=== PATIENT | male | born 1985 | race Caucasian/White ===

== ENCOUNTER 2018-12-08 15:49 | Inpatient (IN) | payer OTHER ==
[2018-12-08 18:59] LABS: ABS Basophils 0.1 10^3/ul (0-0.2); ABS Eosinophils 0.1 10^3/ul (0-0.6); ABS Lymphocytes 1.7 10^3/ul (1.0-4.8); ABS Monocytes 0.8 10^3/ul (0-0.8); ABS Neutrophils 5.6 10^3/ul (1.5-7.7); Eosinophil % 0.7 %; Hematocrit 37 % (42-52); Hemoglobin 12.3 g/dL (14.0-18.0); Lymphocyte % 20.2 %; Mean Corpuscular HGB Conc 33 g/dL (31-36); Mean Corpuscular Hemoglobin 28 pg (27-31); Mean Corpuscular Volume 84 fL (80-94); Mean Platelet Volume 6.5 fL (7.4-10.4); Platelet Count 407 10^3/uL (150-450); Red Blood Count 4.44 10^6 /uL (4.18-5.48); Red Cell Distribution Width 13 % (10-15); White Blood Count 8.2 10^3/uL (3.5-10.8)
[2018-12-08 19:16] LABS: Albumin 3.5 g/dL (3.2-5.2); Calcium 8.8 mg/dL (8.6-10.3); Potassium 3.9 mmol/L (3.5-5.0); Total Bilirubin 0.3 mg/dL (0.2-1.0)
[2018-12-08 19:21] LABS: Troponin I 0.01 ng/mL (<0.04)
[2018-12-08 19:22] LABS: Albumin/Globulin Ratio 1.1 (1-3); BUN/Creatinine Ratio 17.8 (8-20); EGFR African American 148.8 (>60); Globulin 3.2 g/dL (2-4); Total Protein 6.7 g/dL (6.4-8.9)
[2018-12-08 19:29] LABS: C Reactive Protein 47.61 mg/L (<8.01)
--- NOTE | 2018-12-08 19:29 | ED ---
Palpitations / Dysrhythmia - HPI Summary HPI Summary: A 33 y/o male was sent from the [facility] in [place] to [facility] with a chief complaint of having an abnormal EKG. The patient had a IN interval of 104, potassium of 5.7 and low vitamin D. He says that before this he had some flu like symptoms, and now he has some muscle aching and joint aches, but claims that they have been getting better. He says that one week ago he had elbow pain , before then his feet and left hand had pain, and now his knee has pain. Pt denies any fever, chills, erythema of eyes, sore throat, CP, SOB, cough, abdominal pain, N/V, dysuria, hematuria, myalgia, edema, rash, or dizziness. At triage he rated his pain as a 0/10 in severity. He denies any tick exposure. He denies any PMHx, any SHx or taking any medications. - History of Current Complaint Chief Complaint: EDDysrhythmPalp Time Seen by Provider: 12/08/18 18:41 Hx Obtained From: Patient Onset/Duration: Sudden Onset, Lasting Hours, Still Present Timing: Constant Severity Initially: Mild Severity Currently: Mild Aggravating: Nothing Alleviating: Nothing Associated Signs & Symptoms: Negative - Allergy/Home Medications Allergies/Adverse Reactions: Allergies Allergy/AdvReac Type Severity Reaction Status Date / Time No Known Allergies Allergy Verified 12/08/18 15:59 PMH/Surg Hx/FS Hx/Imm Hx Endocrine/Hematology History: Denies: Hx Diabetes Cardiovascular History: Denies: Hx Hypercholesterolemia, Hx Hypertension Sensory History: Denies: Hx Deafness Opthamlomology History: Reports: Hx Contacts or Glasses EENT History: Denies: Hx Deafness - Surgical History Surgical History: None Infectious Disease History: No Infectious Disease History: Denies: Traveled Outside the [place] in Last 30 Days - Family History Known Family History: Positive: Cardiac Disease - [place] grandfather Negative: Hypertension, Diabetes - Social History Alcohol Use: Occasionally Substance Use Type: Reports: Marijuana Smoking Status (MU): Never Smoked Tobacco Review of Systems Negative: Fever, Chills Negative: Erythema Negative: Sore Throat Positive: Other - positive: "abnormal EKG". Negative: Chest Pain Negative: Shortness Of Breath, Cough Negative: Abdominal Pain, Vomiting, Nausea Negative: dysuria, hematuria Positive: Arthralgia, Other - positive: muscle aches and soreness. Negative: Myalgia, Edema Negative: Rash Neurological: Negative - dizziness All Other Systems Reviewed And Are Negative: Yes Physical Exam - Summary Physical Exam Summary: Constitutional: Well-developed, Well-nourished, Alert. (-) Distressed Skin: Warm, Dry HENT: Normocephalic; Atraumatic Eyes: Conjunctiva normal Neck: Musculoskeletal ROM normal neck. (-) JVD, (-) Stridor, (-) Tracheal deviation Cardio: Rhythm regular, rate normal, Heart sounds normal; Intact distal pulses; The pedal pulses are 2+ and symmetric. Radial pulses are 2+ and symmetric. (-) Murmur Pulmonary/Chest wall: Effort normal. (-) Respiratory distress, (-) Wheezes, (-) Rales Abd: Soft, (-) tenderness, (-) Distension, (-) Guarding, (-) Rebound Musculoskeletal: (-) Edema Lymph: (-) Cervical adenopathy Neuro: Alert, Oriented x3 Psych: Mood and affect Normal Triage Information Reviewed: Yes Vital Signs On Initial Exam: Initial Vitals Temp Pulse Resp BP Pulse Ox 97.9 F 89 16 145/89 99 12/08/18 15:54 12/08/18 15:54 12/08/18 15:54 12/08/18 15:54 12/08/18 15:54 Vital Signs Reviewed: Yes Diagnostics - Vital Signs Vital Signs Temp Pulse Resp BP Pulse Ox 12/08/18 18:00 86 99 12/08/18 17:56 85 131/80 100 12/08/18 17:46 76 24 99 12/08/18 15:54 97.9 F 89 16 145/89 99 - Laboratory Lab Results: Lab Results 12/08/18 12/08/18 12/08/18 Range/Units 18:46 18:46 18:46 WBC 8.2 (3.5-10.8) 10^3/uL RBC 4.44 (4.18-5.48) 10^6 /uL Hgb 12.3 L (14.0-18.0) g/dL Hct 37 L (42-52) % MCV 84 (80-94) fL MCH 28 (27-31) pg MCHC 33 (31-36) g/dL RDW 13 (10-15) % Plt Count 407 (150-450) 10^3/uL MPV 6.5 L (7.4-10.4) fL Neut % (Auto) 68.5 % Lymph % (Auto) 20.2 % [place] % (Auto) 9.8 % Eos % (Auto) 0.7 % Baso % (Auto) 0.8 % Absolute Neuts (auto) 5.6 (1.5-7.7) 10^3/ul Absolute Lymphs (auto) 1.7 (1.0-4.8) 10^3/ul Absolute Monos (auto) 0.8 (0-0.8) 10^3/ul Absolute Eos (auto) 0.1 (0-0.6) 10^3/ul Absolute Basos (auto) 0.1 (0-0.2) 10^3/ul Absolute Nucleated RBC 0.0 10^3/ul Nucleated RBC % 0.0 Sodium 136 (135-145) mmol/L Potassium 3.9 (3.5-5.0) mmol/L Chloride 104 (101-111) mmol/L Carbon Dioxide 24 (22-32) mmol/L Anion Gap 8 (2-11) mmol/L BUN 13 (6-24) mg/dL Creatinine 0.73 (0.67-1.17) mg/dL Est GFR ( Amer) 148.8 (>60) Est GFR (Non-Af Amer) 123.0 (>60) BUN/Creatinine Ratio 17.8 (8-20) Glucose 104 H (70-100) mg/dL Lactic Acid 1.0 (0.5-2.0) mmol/L Calcium 8.8 (8.6-10.3) mg/dL Total Bilirubin 0.30 (0.2-1.0) mg/dL AST 14 (13-39) U/L ALT 15 (7-52) U/L Alkaline Phosphatase 83 (34-104) U/L Troponin I 0.01 (<0.04) ng/mL C-Reactive Protein Pending Total Protein 6.7 (6.4-8.9) g/dL Albumin 3.5 (3.2-5.2) g/dL Globulin 3.2 (2-4) g/dL Albumin/Globulin Ratio 1.1 (1-3) Result Diagrams: 12/08/18 18:46 12/08/19 18:46 Lab Statement: Any lab studies that have been ordered have been reviewed, and results considered in the medical decision making process. - EKG 16:04 Cardiac Rate: Other Rate - Accelerated junctional rhythm at 83 bpm Summary of EKG Findings: EKG at 16:04 showed Accelerated junctional rhythm at 83 bpm, no STEMI. 18:45 Cardiac Rate: Other Rate - Sinus or ectopic atrial rhythm at 77bpm. Summary of EKG Findings: EKG at 18:45 showed Sinus or ectopic atrial rhythm at 77bpm, prolonged IN interval, left bundle branch block, no STEMI. Re-Evaluation - Re-Evaluation First Eval Re-Evaluation Time: 19:54 Change: Unchanged Comment: Updated patient on the plan. Course/Dx - Course Course Of Treatment: A 33 y/o male was sent from the [facility] in [place] to [facility] with a chief complaint of having an abnormal EKG. The patient had a IN interval of 104, potassium of 5.7 and low vitamin D. He says that before this he had some flu like symptoms, and now he has some muscle aching and joint aches , but claims that they have been getting better. He says that one week ago he had elbow pain, before then his feet and left hand had pain, and now his knee has pain. Pt denies any fever, chills, erythema of eyes, sore throat, CP, SOB, cough, abdominal pain, N/V, dysuria, hematuria, myalgia, edema, rash, or dizziness. At triage he rated his pain as a 0/10 in severity. He denies any tick exposure. He denies any PMHx, any SHx or taking any medications. The physical exam was unremarkable. EKG at 16:04 showed Accelerated junctional rhythm at 83 bpm, no STEMI. EKG at 18:45 showed Sinus or ectopic atrial rhythm at 77bpm, prolonged IN interval, left bundle branch block, no STEMI. Blood work and chemistries obtained. Potassium of 3.9. In the ED course the patient was given Ceftriaxone sodium IVPB. Discussed case with Dr. Romero, choir director. 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 Discussed case with Dr. Beyer, who accepted the patient for admission. The patient is agreeable with this plan. 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 Discharge - Sign-Out/Discharge Documenting (check all that apply): Patient Departure - admit All imaging exams completed and their final reports reviewed: Yes Patient Received Moderate/Deep Sedation with Procedure: No - Discharge Plan Condition: Good Disposition: ADMITTED TO [facility] - Billing Disposition and Condition Condition: GOOD [facility]position: [facility] - Attestation Statements Document Initiated by Scribe: Yes Documenting Scribe: Lico Navarrete Provider For Whom Scribe is Documenting (Include Credential): Blanco Salmon MD Scribe Attestation: Lico Santamaria, scribed for Blanco Salmon MD on 12/16/18 at 1135. Scribe Documentation Reviewed: Yes Provider Attestation: The documentation as recorded by the Lico scanlon accurately reflects the service I personally performed and the decisions made by me, Blanco Salmon MD Status of Scribe Document: Viewed Consult Consult: Discussed case with Dr. Beyer, hospitalist, who accepted the patient for admission.
[2018-12-08] MEDS ORDERED: cefTRIAXone(*) 2 GM in NS 0.9% 100 ML* 100 ML IVPB ONE (19:47)
--- NOTE | 2018-12-08 20:13 | HP ---
History of Present Illness - History of Present Illness Reason for Visit: Joint Pain and abnormal EKG History of Present Illness: 33yoM with no past medical history here due to abnormal EKG. Patient was in his usual state of health up until last month when he started noticing muscle aches on the shoulder, which didn't improve. Later started having diffuse pain in joints and muscles which was migrating arthritis and muscle aches. Has been having generalized fatigue felt like he had the flu. Had night sweats felt like he was breaking a fever but never checked his temperature. No chest pain or breathing difficulty or palpitations. Denies any tick bites. Had one episode of severe light headedness 2-3 weeks ago. He finally went to see a doctor at the [facility] who noticed abnormal EKG and sent to ER for evaluation. [place]. -Past Medical History None - Past Surgical History Past Surgical History: Other - Root canal but no other surgeries. - Past Family History Family History: None - Mother and Father in their 60s without any cardiac problem. Father had diabetes that improved with just diet. - Past Social History Smoke: No - But has tried cigar occationally. Occupation: but works as weilder now. Alcohol: Occassional - Once a month. Drugs: Marijuana - Tried smoking occassionally. Lives: With Family - and daughter Review of Systems - Measurements Intake and Output: Intake and Output Last 24 Hours 12/06/18 12/07/18 12/08/18 12/09/18 06:59 06:59 06:59 06:59 Weight 196 lb - Review of Systems Constitutional Symptoms: Positive: Weakness, Fatigue, Night Sweats Dermatology: Negative: Rash, Skin Lesions Pulmonary: Negative: Cough, Respiratory Distress Cardiology: Negative: Chest Pain, Shortness of Breath, Palpitations, Edema Gastroenterology: Negative: Abdominal Pain, Nausea, Vomiting Musculoskeletal: Positive: Joint Pain, Joint Stiffness Neurology: Positive: Dizziness Objective Active Medications: Ceftriaxone Sodium 2 gm/ (Sodium Chloride) 100 mls @ 200 mls/hr IVPB ED ONCE ONE Stop: 12/08/18 20:16 Vital Signs - 8 hr 12/08/18 12/08/18 12/08/18 15:54 17:46 17:56 Temperature 97.9 F Pulse Rate 89 76 85 Respiratory 16 24 Rate Blood Pressure 145/89 131/80 (mmHg) O2 Sat by Pulse 99 99 100 Oximetry 12/08/18 18:00 Temperature Pulse Rate 86 Respiratory Rate Blood Pressure (mmHg) O2 Sat by Pulse 99 Oximetry Oxygen Devices in Use Now: None Eyes: No Scleral Icterus, PERRLA Ears/Nose/Mouth/Throat: NL Teeth, Lips, Gums, Clear Oropharnyx, Mucous Membranes Moist Neck: NL Appearance and Movements; NL JVP, Trachea Midline, No Thyroid Enlargement, Masses Respiratory: Clear to Auscultation Cardiovascular: NL Sounds; No Murmurs; No JVD, RRR, No Edema Abdominal: NL Sounds; No Tenderness; No Distention, No Hepatosplenomegaly Extremities: No Edema Skin: No Rash or Ulcers Neurological: Alert and Oriented x 3, NL Sensation, NL Gait, NL Muscle Strength and Tone Nutrition: Taking PO's Result Diagrams: 12/08/18 18:46 12/08/18 18:46 Additional Lab and Data: Lab Results 12/08/18 12/08/18 12/08/18 Range/Units 18:46 18:46 18:46 WBC 8.2 (3.5-10.8) 10^3/uL RBC 4.44 (4.18-5.48) 10^6 /uL Hgb 12.3 L (14.0-18.0) g/dL Hct 37 L (42-52) % MCV 84 (80-94) fL MCH 28 (27-31) pg MCHC 33 (31-36) g/dL RDW 13 (10-15) % Plt Count 407 (150-450) 10^3/uL MPV 6.5 L (7.4-10.4) fL Neut % (Auto) 68.5 % Lymph % (Auto) 20.2 % [place] % (Auto) 9.8 % Eos % (Auto) 0.7 % Baso % (Auto) 0.8 % Absolute Neuts (auto) 5.6 (1.5-7.7) 10^3/ul Absolute Lymphs (auto) 1.7 (1.0-4.8) 10^3/ul Absolute Monos (auto) 0.8 (0-0.8) 10^3/ul Absolute Eos (auto) 0.1 (0-0.6) 10^3/ul Absolute Basos (auto) 0.1 (0-0.2) 10^3/ul Absolute Nucleated RBC 0.0 10^3/ul Nucleated RBC % 0.0 Sodium 136 (135-145) mmol/L Potassium 3.9 (3.5-5.0) mmol/L Chloride 104 (101-111) mmol/L Carbon Dioxide 24 (22-32) mmol/L Anion Gap 8 (2-11) mmol/L BUN 13 (6-24) mg/dL Creatinine 0.73 (0.67-1.17) mg/dL Est GFR ( Amer) 148.8 (>60) Est GFR (Non-Af Amer) 123.0 (>60) BUN/Creatinine Ratio 17.8 (8-20) Glucose 104 H (70-100) mg/dL Lactic Acid 1.0 (0.5-2.0) mmol/L Calcium 8.8 (8.6-10.3) mg/dL Total Bilirubin 0.30 (0.2-1.0) mg/dL AST 14 (13-39) U/L ALT 15 (7-52) U/L Alkaline Phosphatase 83 (34-104) U/L Troponin I 0.01 (<0.04) ng/mL C-Reactive Protein Pending Total Protein 6.7 (6.4-8.9) g/dL Albumin 3.5 (3.2-5.2) g/dL Globulin 3.2 (2-4) g/dL Albumin/Globulin Ratio 1.1 (1-3) EKG Data: Two EKGs noted. First one at 16:04 today showed accelerated junctional at a rate of 83 with LBBB. Second one at 18:45 shows first degree AV block at a rate of 77bpm, with prolong VT of 384 and LBBB. Assess/Plan/Problems-Billing Assessment: 33year old male otherwise healthy here due to chronic fatigue and flu like symptoms noted to have abnormal EKG with variable AV bravo block initially having accelerated junctional later having first degree AV block. Presentation consistent with lyme carditis. - Patient Problems (1) Lyme carditis Current Visit: Yes Status: Acute Code(s): A69.29 - OTHER CONDITIONS ASSOCIATED WITH LYME DISEASE; I51.89 - OTHER ILL-DEFINED HEART DISEASES SNOMED Code(s): 20802335 Comment: Abnormal EKG with variable AV bravo block likely lyme. Lyme titer pending. Will also add tick panel. Uptodate suggestion admission with VT>300 and patient had 387 so will admit to inpatient with cardiac monitoring. Continue ceftriaxone 2gm daily started in ER. ECHO in AM. Spoke with Dr. Romero who will see the patinet in AM. (2) DVT prophylaxis Current Visit: Yes Status: Acute Code(s): Z29.9 - ENCOUNTER FOR PROPHYLACTIC MEASURES, UNSPECIFIED SNOMED Code(s): 643416768 Comment: Encourage ambulation. Allergies/Medications Medication: NK [No Home Medications Reported] 12/08/18 [History Confirmed 12/08/18] Allergies/Adverse Reactions: Allergies Allergy/AdvReac Type Severity Reaction Status Date / Time No Known Allergies Allergy Verified 12/08/18 15:59
[2018-12-09 09:10] LABS: CKMB ng/mL 0.5 ng/mL (0.6-6.3)
--- NOTE | 2018-12-09 09:24 | ECHO ---
*[facility]* [place] [address] Fax #: [phone] Transthoracic Echocardiogram Patient: Jaime Beavers : 1985 Study Date: 12/09/2018 Age: 33 Gender: M HR: 79 bpm Height: 72 in /182.9 cm BSA: 2.11 m^2 Weight: 195.6 lb /88.9 kg BMI: 26.6 kg/m^2 *Supervisor Plate Pasting: * Dagmar Ortega [facility] *Referring Physician: * José Beyer *Reading Physician: * Zunilda Espinoza MD Indications: Abnormal EKG. History: No known cardiac history. Conclusions Summary: 1. Left ventricle: The cavity size is normal. Wall thickness is normal. Systolic function is at the lower limits of normal. The estimated ejection fraction is 50-55%. Paradoxical septal wall motion secondary to conduction abnormality. 2. Right ventricle: The tricuspid jet envelope definition is inadequate for estimation of RV systolic pressure. There are no indirect findings (abnormal RV volume or geometry, altered pulmonary flow velocity profile, or leftward septal displacement) which would suggest moderate or severe pulmonary hypertension. 3. Mitral valve: There is trace regurgitation. 4. Pericardium, extracardiac: There is no significant pericardial effusion. 5. No previous echocardiogram available. Study data: Transthoracic echocardiogram. Procedure: Transthoracic echocardiography was performed. Image quality was good. Complete 2D, spectral Doppler, and color flow Doppler. Location: Bedside. Patient status: Inpatient. Patient room number: 446-2. Rhythm: Heart block. Findings Left ventricle: The cavity size is normal. Wall thickness is normal. Systolic function is at the lower limits of normal. The estimated ejection fraction is 50-55%. Wall motion is normal; there are no regional wall motion abnormalities. There is no consistent Doppler evidence of clinically significant diastolic dysfunction. Right ventricle: The cavity size is normal. Systolic function is low normal. The tricuspid jet envelope definition is inadequate for estimation of RV systolic pressure. There are no indirect findings (abnormal RV volume or geometry, altered pulmonary flow velocity profile, or leftward septal displacement) which would suggest moderate or severe pulmonary hypertension. Left atrium: The atrium is normal in size. Right atrium: The atrium is normal in size. Mitral valve: The leaflets are mildly thickened. There is no evidence of stenosis. There is trace regurgitation. Aortic valve: The valve is trileaflet. The leaflets are normal thickness. There is no evidence of stenosis. There is no significant regurgitation. Tricuspid valve: The leaflets are normal thickness. There is no evidence of stenosis. There is physiologic regurgitation. Pulmonic valve: The leaflets are normal thickness. There is no evidence of stenosis. There is trivial regurgitation. Aorta: Aortic root: The aortic root is appears normal. Ascending aorta: The ascending aorta is appears normal. Aortic arch: The aortic arch is appears normal. Pericardium: There is no significant pericardial effusion. Pulmonary arteries: The main pulmonary artery is normal-sized. Systolic pressure can not be accurately estimated. Systemic veins: Inferior vena cava: The vessel is normal in size. The respirophasic diameter changes are in the normal range (>= 50%). Measurements Left ventricle Value Ref Right atrium continued Value Ref JACLYN, LAX 5.4 cm 4.2 - 5.8 SI dim/bsa, ES, 2.1 cm/m^2 1.8 - ESD, LAX 3.9 cm 2.5 - 4.0 A4C 3.0 FS, LAX 29 % Estimated RAP 3 mm Hg -------- PW, ED, LAX 0.9 cm 0.6 - 1.0 FS 29 % Aortic valve Value Ref PW, ED 0.9 cm 0.6 - 1.0 Tierra diam, ED 2.3 cm -------- E', lat tierra, TDI 22.8 cm/sec >=10.0 Peak v, S 1.19 m/sec - ------- E/e', lat tierra, 3 VTI, S 20.2 cm ---- ---- TDI Mean grad, S 3.0 mm Hg -------- E', med tierra, TDI 15.5 cm/sec >=7.0 Peak grad, S 6.0 mm Hg - ------- E/e', med tierra, 4 LVOT/AV, VTI ratio 0.69 ---- ---- TDI E', avg, TDI 19.2 cm/sec Mitral valve Value Ref E/e', avg, TDI 4 <=14 Peak E 0.67 m/sec - ------- Peak A 0.44 m/sec -------- LVOT Value Ref Decel time 123 ms -------- Peak deandra, S 0.81 m/sec Peak E/A ratio 1.5 -------- VTI, S 14.0 cm Mean grad, S 1 mm Hg Pulmonic valve Value Ref Peak v, S 0.89 m/sec -------- Ventricular septum Value Ref Peak grad, S 3.0 mm Hg -------- IVS, ED 0.9 cm 0.6 - 1.0 Aortic root Value Ref Right ventricle Value Ref Root diam 3.3 cm <3.8 JACLYN, LAX 3.5 cm JACLYN minor ax, (H) 3.6 cm 1.9 - 3.5 Ascending aorta Value Ref A4C mid AAo AP diam, S 2.9 cm -------- Left atrium Value Ref Aortic arch Value Ref AP dim, ES 3.50 cm 3.00 - Arch diam 1.7 cm -------- 4.00 ML dim, A4C 3.7 cm Decending aorta Value Ref SI dim, A4C 4.8 cm Bridget peak deandra 1.03 m/sec -------- Vol/bsa, ES, 1-p 17 ml/m^2 12 - 37 A4C Inferior vena cava Value Ref Vol/bsa, ES, A/L 25 ml/m^2 16 - 34 Diam 1.8 cm -------- Right atrium Value Ref SI dim, ES 4.5 cm 3.4 - 5.3 ML dim, ES, A4C 4.3 cm 2.6 - 4.4 SI dim, ES, A4C 4.5 cm 3.4 - 5.3 Legend: (L) and (H) mike values outside specified reference range. Prepared and electronically signed by Zunilda Espinoza MD 12/09/2018 09:23
[2018-12-09 11:22] LABS: Rheumatoid Factor < 10 IU/mL (<15)
[2018-12-09 11:38] LABS: TSH (Thyroid Stimulating Horm) 0.23 mcIU/mL (0.34-5.60)
--- NOTE | 2018-12-09 13:55 | CONS ---
CONSULTATION REPORT: DATE OF CONSULT: 12/09/18 PRIMARY PHYSICIAN: The patient states he follows at the [facility] in [place]. ATTENDING PHYSICIAN: Dr. Espinoza, Cardiology.* (DICTATED BY ANNMARIE BRICENO NP ) CHIEF COMPLAINT: One month history of profound fatigue, positional lightheadedness, episodes of near syncope, and joint pain/discomfort. HISTORY OF PRESENT ILLNESS: This is a pleasant 33-year-old gentleman with no notable medical history, on no outpatient medications, who states he has been in his usual state of health up until about 4 to 5 weeks ago when he started to notice excessive fatigue, positional lightheadedness, large joint discomfort and stiffness and muscle aches and pains with night sweats intermittently. The patient states that he recently purchased a farm in [place] and he is outside routinely and of course there is a possible Lyme exposure due to persistently being outside working on his home, where he owns 8 acres. He also adds that a month ago he did have a bite on his right ankle, but denies a bull's eye rash. Since that time, he has had excessive fatigue that has not improved. He does note that on 11/25/18, he woke up at 5 o'clock in the morning to change his 6- month-old child. While standing, he had an episode of near syncope. He states that he knew he was going to "go down." So, he woke up his , lied in the supine position on the floor. He states that he was profoundly diaphoretic and pale. The episode did eventually pass. He denies syncope. He does report intermittent positional lightheadedness and night sweats. Apparently he established care with a new primary physician at the [facility], who ordered basic testing including Lyme testing yesterday and told that the potassium was 5.7, although in the emergency department his potassium was 3.9. He had an abnormal ECG, thus was instructed to present to [facility]. While being evaluated in the emergency department, the patient had accelerated junctional rhythm. ECG at that time per report, accelerated junctional rhythm, absent P-waves, accelerated ventricular rate with left bundle-branch block. The patient was admitted to [address] [place] [address] and we have been asked to see the patient in consultation. Lyme testing is pending at this time. Troponin has been normal x3. C-reactive protein was elevated at 47.6. On telemetry, around 7 o' clock this morning, he had episodes of frequent ventricular ectopy with second- degree type I heart block. No evidence of high-degree AV block. He is not symptomatic. He denies palpitations, sensation of heart racing, chest pain, shortness of breath, or edema/orthopnea. PAST MEDICAL HISTORY: None. PAST SURGICAL HISTORY: Root canal. MEDICATIONS: Home medications, none. ALLERGIES: No known drug allergies. FAMILY HISTORY: His mom had a history of back surgery and orthopedic surgeries. His father is a type 2 diabetic, controlled via diet. No significant history of sudden cardiac or cardiovascular disease in first- degree relatives. SOCIAL HISTORY: The patient is , lives at home with his and 6-month - old child. He is employed as a welder apprentice arc. He is a . He denies tobacco use. He drinks alcohol socially. He utilizes marijuana 1 to 2 times a week. Denies illegal drug use including any other illegal drug use such as cocaine, methamphetamine, or synthetic drugs. REVIEW OF SYSTEMS: All systems have been reviewed and otherwise negative except as above mentioned in the HPI. PHYSICAL EXAM: Temperature 98.4, pulse 79, respirations 16, oxygenation 97 on room air, blood pressure 120/67. General: The patient is lying in bed upon entering the room with echocardiogram recently completed. He offers no complaints, appears in no apparent distress. HEENT: Head is atraumatic, normocephalic. Oral mucosa is moist. Tongue is midline. Neck: Supple. Trachea midline. No JVD. No carotid bruits. Cardiac: Normal S1, S2. Regular rate and rhythm. No murmur, gallop, or rub noted. Lungs: Auscultated posteriorly. No evidence of adventitious breath sounds. Respirations are nonlabored. /GI: Abdomen is soft, nontender, nondistended. Normoactive bowel sounds x4. No hepatomegaly. Extremities: No pedal edema, no clubbing, no cyanosis. No apparent rashes noted or lesions. DIAGNOSTIC STUDIES/LAB DATA: Blood work obtained on 12/08/18: Sodium 136, potassium 3.9, chloride 104, carbon dioxide 24, BUN 13, creatinine 0.73, glucose 104, C-reactive protein 47.6. Troponin negative x3. ESR is pending. Lyme testing is pending. ECG from 12/08/18: Sinus rhythm, rate [address] upsloping noted in lead I to V4 through V6. The patient has intraventricular conduction delay with poor R-wave progression. Echocardiogram on 12/08/18 per report: LVEF 50% to 55%. There is paradoxical septal wall motion abnormalities secondary to conduction abnormality. Trace mitral regurgitation. No significant pericardial effusion. Aortic root is normal, no aortic stenosis or insufficiency. ASSESSMENT AND PLAN: 1. Intermittent left bundle-branch block with second-degree type I heart block and accelerated junctional rhythm; etiology is not clear at this time. LVEF low normal at 50% to 55%. Troponins negative x3. Denies chest pain. The patient did have an episode of near syncope at 5 o'clock in the morning while standing, changing his daughter on 11/25/18. The patient reports paler and profound diaphoresis episode, resolved once he lied down in the supine position on the floor. We will await Lyme testing. The patient would likely benefit from a 30- day ambulatory library monitor upon discharge. We will continue to monitor on telemetry. There is no evidence of high-degree AV block at this current time. We will follow closely. 2. One month history of profound fatigue, large joint pain, muscle aches, night sweats, and positional lightheadedness with 1 isolated episode of near syncope. Lyme testing is pending. We will update TFTs, RF factor, SADIA, ESR, and follow. Consider rheumatologic evaluation if Lyme testing is negative. The patient is on IV ceftriaxone therapy. 3. Disposition: Pending course. Dr. Espinoza has personally seen and examined the patient and agrees with the above assessment and plan. Thank you for this consultation. We will follow the patient closely and update recommendations accordingly. ANNMARIE BRICENO NP [id number]/[facility] #: [id number] 2:03 pm: pt seen and examined. Pt's clinical condition and plan of care discussed with DENICE Briceno and agree with the plan. LINUS
--- NOTE | 2018-12-09 18:15 | PN ---
Subjective Date of Service: 12/09/18 Interval History: Left knee pain resolved after initiation of CTX no SOB, CP, palps Walking around unit Objective Active Medications: Ceftriaxone Sodium 2 gm/ (Sodium Chloride) 100 mls @ 200 mls/hr IVPB Q24H [facility] Vital Signs - 8 hr 12/09/18 12/09/18 12:00 16:00 Temperature 97.6 F 97.7 F Pulse Rate 96 78 Respiratory 16 20 Rate Blood Pressure 117/64 117/69 (mmHg) O2 Sat by Pulse 98 97 Oximetry Oxygen Devices in Use Now: None Appearance: NAD Eyes: No Scleral Icterus, PERRLA Ears/Nose/Mouth/Throat: NL Teeth, Lips, Gums, Clear Oropharnyx Neck: NL Appearance and Movements; NL JVP, Trachea Midline Respiratory: Symmetrical Chest Expansion and Respiratory Effort, Clear to Auscultation Cardiovascular: NL Sounds; No Murmurs; No JVD, RRR Abdominal: NL Sounds; No Tenderness; No Distention Lymphatic: No Cervical Adenopathy Skin: No Rash or Ulcers Neurological: Alert and Oriented x 3 Result Diagrams: 12/08/18 18:46 12/08/18 18:46 Additional Lab and Data: Lab Results 12/08/18 12/08/18 12/08/18 Range/Units 18:46 18:46 18:46 WBC 8.2 (3.5-10.8) 10^3/uL RBC 4.44 (4.18-5.48) 10^6 /uL Hgb 12.3 L (14.0-18.0) g/dL Hct 37 L (42-52) % MCV 84 (80-94) fL MCH 28 (27-31) pg MCHC 33 (31-36) g/dL RDW 13 (10-15) % Plt Count 407 (150-450) 10^3/uL MPV 6.5 L (7.4-10.4) fL Neut % (Auto) 68.5 % Lymph % (Auto) 20.2 % [place] % (Auto) 9.8 % Eos % (Auto) 0.7 % Baso % (Auto) 0.8 % Absolute Neuts (auto) 5.6 (1.5-7.7) 10^3/ul Absolute Lymphs (auto) 1.7 (1.0-4.8) 10^3/ul Absolute Monos (auto) 0.8 (0-0.8) 10^3/ul Absolute Eos (auto) 0.1 (0-0.6) 10^3/ul Absolute Basos (auto) 0.1 (0-0.2) 10^3/ul Absolute Nucleated RBC 0.0 10^3/ul Nucleated RBC % 0.0 Sodium 136 (135-145) mmol/L Potassium 3.9 (3.5-5.0) mmol/L Chloride 104 (101-111) mmol/L Carbon Dioxide 24 (22-32) mmol/L Anion Gap 8 (2-11) mmol/L BUN 13 (6-24) mg/dL Creatinine 0.73 (0.67-1.17) mg/dL Est GFR ( Amer) 148.8 (>60) Est GFR (Non-Af Amer) 123.0 (>60) BUN/Creatinine Ratio 17.8 (8-20) Glucose 104 H (70-100) mg/dL Lactic Acid 1.0 (0.5-2.0) mmol/L Calcium 8.8 (8.6-10.3) mg/dL Total Bilirubin 0.30 (0.2-1.0) mg/dL AST 14 (13-39) U/L ALT 15 (7-52) U/L Alkaline Phosphatase 83 (34-104) U/L Troponin I 0.01 (<0.04) ng/mL C-Reactive Protein Pending Total Protein 6.7 (6.4-8.9) g/dL Albumin 3.5 (3.2-5.2) g/dL Globulin 3.2 (2-4) g/dL Albumin/Globulin Ratio 1.1 (1-3) EKG Data: Two EKGs noted. First one at 16:04 today showed accelerated junctional at a rate of 83 with LBBB. Second one at 18:45 shows first degree AV block at a rate of 77bpm, with prolong WA of 384 and LBBB. Assess/Plan/Problems-Billing Assessment: 33 year old male otherwise healthy here due to chronic fatigue and flu like symptoms noted to have abnormal EKG with variable AV bravo block and intermittent LBBB initially having accelerated junctional later having significant first degree AV block - Patient Problems (1) Lyme carditis Code(s): A69.29 - OTHER CONDITIONS ASSOCIATED WITH LYME DISEASE; I51.89 - OTHER ILL-DEFINED HEART DISEASES Comment: Crescendo of illness symptoms improving over last 2 weeks. Had right ankle rash around time of symptom development but was not classic "bulls eye" Variable AV block with junctional escape, prolonged WA, and intermittent LBBB Total lyme ab positive, reflex and other tick born serologies pending Presentation c/w lyme carditis Continue monitoring, EKG in AM CTX 2gm q24hr (2) DVT prophylaxis Comment: ambulating.
[2018-12-09] MEDS: cefTRIAXone(*) 2 GM in NS 0.9% 100 ML* 100 ML IVPB SCH (20:00)
--- NOTE | 2018-12-10 09:05 | PN ---
Subjective Date of Service: 12/10/18 - near syncope, palpitations, zccelerated junctional rhythm, 1st degree AV block Interval History: Pt was asymptomatic overnight. Reports ambulating lugo yesterday without return of symptoms. Had an episode of Mobitz type II early this AM. Also reports resolution of muscle aches and joint pain. Medications Active Medications: Ceftriaxone Sodium 2 gm/ (Sodium Chloride) 100 mls @ 200 mls/hr IVPB Q24H [facility] Last Admin: 12/09/18 20:00 Dose: 200 mls/hr Objective Vital Signs: Temp Pulse Resp BP Pulse Ox 97.7 F 74 16 126/82 99 12/10/18 08:00 12/10/18 08:00 12/10/18 08:00 12/10/18 08:00 12/10/18 08:00 Oxygen Devices in Use Now: None Eyes: No Scleral Icterus Ears/Nose/Mouth/Throat: Clear Oropharnyx Respiratory: Symmetrical Chest Expansion and Respiratory Effort, Clear to Auscultation Cardiovascular: NL Sounds; No Murmurs; No JVD, RRR Extremities: No Edema Skin: No Rash or Ulcers Neurological: Alert and Oriented x 3 Lines/Tubes/Other Access: Clean, Dry and Intact Peripheral IV Nutrition: Taking PO's Laboratory Results: 12/08/18 18:46 12/08/18 18:46 Total Bilirubin 0.30 mg/dL (0.2-1.0) 12/08/18 18:46 AST 14 U/L (13-39) 12/08/18 18:46 ALT 15 U/L (7-52) 12/08/18 18:46 Alkaline Phosphatase 83 U/L (34-104) 12/08/18 18:46 CK-MB (CK-2) 0.5 ng/mL (0.6-6.3) L 12/09/18 00:15 Total Protein 6.7 g/dL (6.4-8.9) 12/08/18 18:46 Albumin 3.5 g/dL (3.2-5.2) 12/08/18 18:46 Globulin 3.2 g/dL (2-4) 12/08/18 18:46 Albumin/Globulin Ratio 1.1 (1-3) 12/08/18 18:46 TSH 0.23 mcIU/mL (0.34-5.60) L 12/09/18 08:59 12/08/18 12/08/18 12/09/18 18:46 21:50 00:15 Troponin I 0.01 0.00 0.00 Laboratory Results - last 24 hr 12/08/18 12/09/18 12/09/18 18:46 00:15 08:59 ESR Total Creatine Kinase 25 CK-MB (CK-2) 0.5 L Troponin I 0.00 TSH 0.23 L Free T4 Cancelled Free T3 Cancelled Rheumatoid Factor < 10 Lyme Total Antibody Positive A 12/09/18 09:03 ESR 44 H Total Creatine Kinase CK-MB (CK-2) Troponin I TSH Free T4 Free T3 Rheumatoid Factor Lyme Total Antibody Diagnostic Imaging: *[facility]* [place] [address] Fax #: [phone] Transthoracic Echocardiogram Patient: Jaime Beavers : 1985 Study Date: 12/09/2018 Age: 33 Gender: M HR: 79 bpm Height: 72 in /182.9 cm BSA: 2.11 m^2 Weight: 195.6 lb /88.9 kg BMI: 26.6 kg/m^2 *Canary Raiser: * Dagmar Ortega [facility] *Referring Physician: * José Beyer *Reading Physician: * Zunilda Espinoza MD Indications: Abnormal EKG. History: No known cardiac history. Conclusions Summary: 1. Left ventricle: The cavity size is normal. Wall thickness is normal. Systolic function is at the lower limits of normal. The estimated ejection fraction is 50-55%. Paradoxical septal wall motion secondary to conduction abnormality. 2. Right ventricle: The tricuspid jet envelope definition is inadequate for estimation of RV systolic pressure. There are no indirect findings (abnormal RV volume or geometry, altered pulmonary flow velocity profile, or leftward septal displacement) which would suggest moderate or severe pulmonary hypertension. 3. Mitral valve: There is trace regurgitation. 4. Pericardium, extracardiac: There is no significant pericardial effusion. 5. No previous echocardiogram available. This report is only to be considered final once signed by the Provider(s) as displayed in the "<Electronically Signed by >" field (s). Absence of a signature indicates the report is in a draft status and still needs to be finalized. In the event this document was created by someone other than the signing Provider, the individual initiating the document will be listed in the "Entered by:" or "Dictated by:" umanzor. EKG Data: Telemetry reviewed: Mobitz type II at 0500 rate 40, otherwise shows transient LBBB with transient ventricular bigeminy. Rate 60s-70s EKG 12/10/2018 0800: sinus rhythm, 1st degree AV block, LBBB, rate 62 Assessment/Plan 1. Lyme carditis: Initial Lyme Ab positive. Reflex serum analysis pending. On IV Ceftriaxone. Pt had brief episode of Mobitz type II AVB at 0500, HR 40. Pt asymptomatic. He continues to have intermittent AV block with periods of ventricular bigeminy and LBBB. Recommend continuing to monitor on telemetry. No indication for pacemaker at this time. Will speak to PCP with [facility] in [place] about arranging for OP event monitor. Will defer to primary team for length of ABX therapy given cardiac involvement. 2. Decreased TSH: TSH 0.23 12/09/2018. Free T3 and Free T4 pending. Likely incidental finding. 3. Disposition pending course. Full code. Recommend continuing telemetry monitoring. Will follow closely. Discussed with Dr. Espinoza who agrees with above assessment and plan. Attending: Zunilda Espinoza
[2018-12-10 10:51] LABS: Free T3 4.1 pg/mL (2.5-3.9)
[2018-12-10 10:52] LABS: Free T4 1.27 ng/dL (0.61-1.12)
--- NOTE | 2018-12-10 17:38 | PN ---
<MeñobrendanMauratawana - Last Filed: 12/10/18 17:31> Subjective Date of Service: 12/10/18 Interval History: No any fresh complaints. Feels much more better. Objective Active Medications: Ceftriaxone Sodium 2 gm/ (Sodium Chloride) 100 mls @ 200 mls/hr IVPB Q24H [facility] Last Admin: 12/09/18 20:00 Dose: 200 mls/hr Vital Signs - 8 hr 12/10/18 12/10/18 12:00 15:38 Temperature 97.4 F 97.6 F Pulse Rate 68 71 Respiratory 16 16 Rate Blood Pressure 124/67 125/75 (mmHg) O2 Sat by Pulse 98 97 Oximetry Oxygen Devices in Use Now: None Exam: Patient is sitting on a bed and he is not in acute distress. No any rash, swelling or wound around the body. CVS: Normal heart sounds, No murmur, rubs or gallops. Respiratory: Normal vesicular sound heard. Neurological: Alert, conscious and oriented GI: Soft, with no tenderness. Bowel sound heard normally over all quadrants. Result Diagrams: 12/08/18 18:46 12/08/18 18:46 Additional Lab and Data: Lab Results 12/08/18 12/08/18 12/08/18 Range/Units 18:46 18:46 18:46 WBC 8.2 (3.5-10.8) 10^3/uL RBC 4.44 (4.18-5.48) 10^6 /uL Hgb 12.3 L (14.0-18.0) g/dL Hct 37 L (42-52) % MCV 84 (80-94) fL MCH 28 (27-31) pg MCHC 33 (31-36) g/dL RDW 13 (10-15) % Plt Count 407 (150-450) 10^3/uL MPV 6.5 L (7.4-10.4) fL Neut % (Auto) 68.5 % Lymph % (Auto) 20.2 % [place] % (Auto) 9.8 % Eos % (Auto) 0.7 % Baso % (Auto) 0.8 % Absolute Neuts (auto) 5.6 (1.5-7.7) 10^3/ul Absolute Lymphs (auto) 1.7 (1.0-4.8) 10^3/ul Absolute Monos (auto) 0.8 (0-0.8) 10^3/ul Absolute Eos (auto) 0.1 (0-0.6) 10^3/ul Absolute Basos (auto) 0.1 (0-0.2) 10^3/ul Absolute Nucleated RBC 0.0 10^3/ul Nucleated RBC % 0.0 Sodium 136 (135-145) mmol/L Potassium 3.9 (3.5-5.0) mmol/L Chloride 104 (101-111) mmol/L Carbon Dioxide 24 (22-32) mmol/L Anion Gap 8 (2-11) mmol/L BUN 13 (6-24) mg/dL Creatinine 0.73 (0.67-1.17) mg/dL Est GFR ( Amer) 148.8 (>60) Est GFR (Non-Af Amer) 123.0 (>60) BUN/Creatinine Ratio 17.8 (8-20) Glucose 104 H (70-100) mg/dL Lactic Acid 1.0 (0.5-2.0) mmol/L Calcium 8.8 (8.6-10.3) mg/dL Total Bilirubin 0.30 (0.2-1.0) mg/dL AST 14 (13-39) U/L ALT 15 (7-52) U/L Alkaline Phosphatase 83 (34-104) U/L Troponin I 0.01 (<0.04) ng/mL C-Reactive Protein Pending Total Protein 6.7 (6.4-8.9) g/dL Albumin 3.5 (3.2-5.2) g/dL Globulin 3.2 (2-4) g/dL Albumin/Globulin Ratio 1.1 (1-3) EKG Data: Two EKGs noted. First one at 16:04 today showed accelerated junctional at a rate of 83 with LBBB. Second one at 18:45 shows first degree AV block at a rate of 77bpm, with prolong MT of 384 and LBBB. Assess/Plan/Problems-Billing Assessment: 33 Y/o healthy male presented with joint pain, flu like symptom and fatigue with abnormal EKG showing AV blocks. Also recalls being bitten by some tiny bug. He is admitted with diagnosis of Lyme Carditis. - Patient Problems (1) Lyme carditis Current Visit: Yes Status: Acute Code(s): A69.29 - OTHER CONDITIONS ASSOCIATED WITH LYME DISEASE; I51.89 - OTHER ILL-DEFINED HEART DISEASES SNOMED Code(s): 46465946 Comment: Presented with c/o fatigue, muscle pain, multiple joint pain( migratory) arthritis and flu-like symptom. Recalls bite by tiny bug. Ekg shows Mobitz type type II heart block. Antibiotic started. Improved symptomatically. Heart rate is 71 now. Lyme Antibody came out to be postive. He is on ceftriaxone 2 gm. Monitor wit EKG. (2) DVT prophylaxis Current Visit: Yes Status: Acute Code(s): Z29.9 - ENCOUNTER FOR PROPHYLACTIC MEASURES, UNSPECIFIED SNOMED Code(s): 050336998 Comment: ambulating. Status and Disposition: Medicine Inpatient. Attending: Yazan Harden <Yazan Harden - Last Filed: 12/10/18 18:33> Objective Active Medications: Ceftriaxone Sodium 2 gm/ (Sodium Chloride) 100 mls @ 200 mls/hr IVPB Q24H [facility] Last Admin: 12/09/18 20:00 Dose: 200 mls/hr Vital Signs - 8 hr 12/10/18 12/10/18 12:00 15:38 Temperature 97.4 F 97.6 F Pulse Rate 68 71 Respiratory 16 16 Rate Blood Pressure 124/67 125/75 (mmHg) O2 Sat by Pulse 98 97 Oximetry Result Diagrams: 12/08/18 18:46 12/08/18 18:46 Assess/Plan/Problems-Billing Well appearing, NAD rrr, no mrg CTA b/l soft NT, ND no c/c/e AOX3 Assessment: 33 yo healthy man presents with cardiac conduction abnormalities in setting of suspected lyme carditis Carditis -lyme total ab positive - confirmatory testing pending -CTX 2gm daily -if lyme case reports indicate resolution can take 3 days to 6 week. -Discussions with cardiology regarding approriate monitoring if he is to be discharged - Patient Problems (1) Lyme carditis Code(s): A69.29 - OTHER CONDITIONS ASSOCIATED WITH LYME DISEASE; I51.89 - OTHER ILL-DEFINED HEART DISEASES Comment: Presented with c/o fatigue, muscle pain, multiple joint pain(migratory) arthritis and flu-like symptom. Recalls bite by tiny bug. Ekg shows Mobitz type type II heart block. Antibiotic started. Improved symptomatically. Heart rate is 71 now. Lyme Antibody came out to be postive. He is on ceftriaxone 2 gm. Monitor wit EKG. (2) DVT prophylaxis Comment: ambulating. Attestation Documenting Resident: Eren Supervising Physician: Dereck Attestation: This service has been performed in part by a resident under the direction of a teaching physician.IDereck, performed the service, or was physically present during the critical, or saleem portions of the service, furnished by the resident. I participated in the management of the patient.
[2018-12-10] MEDS: cefTRIAXone(*) 2 GM in NS 0.9% 100 ML* 100 ML IVPB SCH (20:06)
[2018-12-11 01:11] LABS: Anaplasma phagocytophilum Negative (Negative); B. miyamotoi PCR, B Negative (Negative); Babesia divergens/MO-1 Negative (Negative); Babesia ducani Negative (Negative); Ehrlichia chaffeensis Negative (Negative); Ehrlichia ewingii/canis Negative (Negative); Ehrlichia muris eauclairensis Negative (Negative)
--- NOTE | 2018-12-11 11:32 | PN ---
Subjective Date of Service: 12/11/18 Interval History: Feels well, no complaints, up and walking around the unit. telemetry review: 2 second pause this morning, pt was asymptomatic Objective Active Medications: Ceftriaxone Sodium 2 gm/ (Sodium Chloride) 100 mls @ 200 mls/hr IVPB Q24H [facility] Last Admin: 12/10/18 20:06 Dose: 200 mls/hr Vital Signs - 8 hr 12/11/18 12/11/18 04:00 08:00 Temperature 97.5 F 97.9 F Pulse Rate 75 64 Respiratory 15 18 Rate Blood Pressure 116/75 125/76 (mmHg) O2 Sat by Pulse 99 97 Oximetry Oxygen Devices in Use Now: None Appearance: NAD Eyes: PERRLA Ears/Nose/Mouth/Throat: NL Teeth, Lips, Gums, Mucous Membranes Moist Neck: No Thyroid Enlargement, Masses, - - non-tender thyroid Respiratory: Symmetrical Chest Expansion and Respiratory Effort, Clear to Auscultation Cardiovascular: NL Sounds; No Murmurs; No JVD, RRR Abdominal: NL Sounds; No Tenderness; No Distention, No Hepatosplenomegaly Lymphatic: No Cervical Adenopathy Extremities: No Edema Skin: No Rash or Ulcers Neurological: Alert and Oriented x 3 Result Diagrams: 12/08/18 18:46 12/08/18 18:46 Additional Lab and Data: Lab Results 12/08/18 12/08/18 12/08/18 Range/Units 18:46 18:46 18:46 WBC 8.2 (3.5-10.8) 10^3/uL RBC 4.44 (4.18-5.48) 10^6 /uL Hgb 12.3 L (14.0-18.0) g/dL Hct 37 L (42-52) % MCV 84 (80-94) fL MCH 28 (27-31) pg MCHC 33 (31-36) g/dL RDW 13 (10-15) % Plt Count 407 (150-450) 10^3/uL MPV 6.5 L (7.4-10.4) fL Neut % (Auto) 68.5 % Lymph % (Auto) 20.2 % [place] % (Auto) 9.8 % Eos % (Auto) 0.7 % Baso % (Auto) 0.8 % Absolute Neuts (auto) 5.6 (1.5-7.7) 10^3/ul Absolute Lymphs (auto) 1.7 (1.0-4.8) 10^3/ul Absolute Monos (auto) 0.8 (0-0.8) 10^3/ul Absolute Eos (auto) 0.1 (0-0.6) 10^3/ul Absolute Basos (auto) 0.1 (0-0.2) 10^3/ul Absolute Nucleated RBC 0.0 10^3/ul Nucleated RBC % 0.0 Sodium 136 (135-145) mmol/L Potassium 3.9 (3.5-5.0) mmol/L Chloride 104 (101-111) mmol/L Carbon Dioxide 24 (22-32) mmol/L Anion Gap 8 (2-11) mmol/L BUN 13 (6-24) mg/dL Creatinine 0.73 (0.67-1.17) mg/dL Est GFR ( Amer) 148.8 (>60) Est GFR (Non-Af Amer) 123.0 (>60) BUN/Creatinine Ratio 17.8 (8-20) Glucose 104 H (70-100) mg/dL Lactic Acid 1.0 (0.5-2.0) mmol/L Calcium 8.8 (8.6-10.3) mg/dL Total Bilirubin 0.30 (0.2-1.0) mg/dL AST 14 (13-39) U/L ALT 15 (7-52) U/L Alkaline Phosphatase 83 (34-104) U/L Troponin I 0.01 (<0.04) ng/mL C-Reactive Protein Pending Total Protein 6.7 (6.4-8.9) g/dL Albumin 3.5 (3.2-5.2) g/dL Globulin 3.2 (2-4) g/dL Albumin/Globulin Ratio 1.1 (1-3) EKG Data: Two EKGs noted. First one at 16:04 today showed accelerated junctional at a rate of 83 with LBBB. Second one at 18:45 shows first degree AV block at a rate of 77bpm, with prolong MO of 384 and LBBB. Assess/Plan/Problems-Billing Assessment: 33 yo previously healthy man presents with cardiac conduction abnormalities in setting of suspected lyme carditis - Patient Problems (1) Lyme carditis Code(s): A69.29 - OTHER CONDITIONS ASSOCIATED WITH LYME DISEASE; I51.89 - OTHER ILL-DEFINED HEART DISEASES Comment: Suspected based on presentation Total lyme positive but confirmatory testing oending Ekg shows Mobitz type type II heart block, intermittent LBBB, 2 sec pause today 12/11 continue with ceftriaxone 2 gm. (2) Hyperthyroidism Comment: Possible thyroiditis as well as carditis in setting of possible lyme Check TPO and thyrotropin receptot antibody repeat TSH, free T3 and T4 in AM (3) DVT prophylaxis Comment: ambulating. Status and Disposition: Medicine Inpatient for continued monitoring on telemetry .
[2018-12-11] MEDS: cefTRIAXone(*) 2 GM in NS 0.9% 100 ML* 100 ML IVPB SCH (20:25)
[2018-12-12 07:55] LABS: TSH (Thyroid Stimulating Horm) 0.1 mcIU/mL (0.34-5.60)
[2018-12-12 07:57] LABS: Free T3 4.1 pg/mL (2.5-3.9); Free T4 1.28 ng/dL (0.61-1.12)
--- NOTE | 2018-12-12 14:49 | PN ---
<MeñobrendanMauratawana - Last Filed: 12/12/18 14:43> Subjective Date of Service: 12/12/18 Interval History: Patient has no any fresh complaint. No SOB, light headedness, Palpitations or chest pain. Objective Active Medications: Ceftriaxone Sodium 2 gm/ (Sodium Chloride) 100 mls @ 200 mls/hr IVPB Q24H YESENIA Last Admin: 12/11/18 20:25 Dose: 200 mls/hr Vital Signs - 8 hr 12/12/18 12/12/18 12/12/18 07:56 08:00 11:07 Temperature 97.4 F 97.8 F Pulse Rate 68 74 Respiratory 20 20 18 Rate Blood Pressure 121/71 127/68 (mmHg) O2 Sat by Pulse 98 99 Oximetry Oxygen Devices in Use Now: None Exam: Patient is sitting on a bed and having his lunch. Genreal: No any rash, swelling or wound around the body. CVS: Normal heart sounds, No murmur, rubs or gallops. Respiratory: Normal vesicular sound heard. Neurological: Alert, conscious and oriented GI: Soft, with no tenderness. Bowel sound heard normally over all quadrants. Result Diagrams: 12/08/18 18:46 12/08/18 18:46 Additional Lab and Data: Lab Results 12/08/18 12/08/18 12/08/18 Range/Units 18:46 18:46 18:46 WBC 8.2 (3.5-10.8) 10^3/uL RBC 4.44 (4.18-5.48) 10^6 /uL Hgb 12.3 L (14.0-18.0) g/dL Hct 37 L (42-52) % MCV 84 (80-94) fL MCH 28 (27-31) pg MCHC 33 (31-36) g/dL RDW 13 (10-15) % Plt Count 407 (150-450) 10^3/uL MPV 6.5 L (7.4-10.4) fL Neut % (Auto) 68.5 % Lymph % (Auto) 20.2 % [place] % (Auto) 9.8 % Eos % (Auto) 0.7 % Baso % (Auto) 0.8 % Absolute Neuts (auto) 5.6 (1.5-7.7) 10^3/ul Absolute Lymphs (auto) 1.7 (1.0-4.8) 10^3/ul Absolute Monos (auto) 0.8 (0-0.8) 10^3/ul Absolute Eos (auto) 0.1 (0-0.6) 10^3/ul Absolute Basos (auto) 0.1 (0-0.2) 10^3/ul Absolute Nucleated RBC 0.0 10^3/ul Nucleated RBC % 0.0 Sodium 136 (135-145) mmol/L Potassium 3.9 (3.5-5.0) mmol/L Chloride 104 (101-111) mmol/L Carbon Dioxide 24 (22-32) mmol/L Anion Gap 8 (2-11) mmol/L BUN 13 (6-24) mg/dL Creatinine 0.73 (0.67-1.17) mg/dL Est GFR ( Amer) 148.8 (>60) Est GFR (Non-Af Amer) 123.0 (>60) BUN/Creatinine Ratio 17.8 (8-20) Glucose 104 H (70-100) mg/dL Lactic Acid 1.0 (0.5-2.0) mmol/L Calcium 8.8 (8.6-10.3) mg/dL Total Bilirubin 0.30 (0.2-1.0) mg/dL AST 14 (13-39) U/L ALT 15 (7-52) U/L Alkaline Phosphatase 83 (34-104) U/L Troponin I 0.01 (<0.04) ng/mL C-Reactive Protein Pending Total Protein 6.7 (6.4-8.9) g/dL Albumin 3.5 (3.2-5.2) g/dL Globulin 3.2 (2-4) g/dL Albumin/Globulin Ratio 1.1 (1-3) EKG Data: Two EKGs noted. First one at 16:04 today showed accelerated junctional at a rate of 83 with LBBB. Second one at 18:45 shows first degree AV block at a rate of 77bpm, with prolong GA of 384 and LBBB. 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 Mobitz Type 1 and Type 2 Block noted today morning. - Patient Problems (1) Lyme carditis Current Visit: Yes Status: Acute Code(s): A69.29 - OTHER CONDITIONS ASSOCIATED WITH LYME DISEASE; I51.89 - OTHER ILL-DEFINED HEART DISEASES SNOMED Code(s): 63450682 Comment: Suspected based on presentation. Total lyme positive but confirmatory testing pending. EKG shows Mobitz type type II heart block, intermittent LBBB, 2 sec pause. Continue with ceftriaxone 2 gm. Monitor on telemetry. (2) DVT prophylaxis Current Visit: Yes Status: Acute Code(s): Z29.9 - ENCOUNTER FOR PROPHYLACTIC MEASURES, UNSPECIFIED SNOMED Code(s): 716114200 Comment: ambulating. Status and Disposition: Medicine Inpatient for continued monitoring on telemetry . Attending: Yazan Harden <Yazan Harden - Last Filed: 12/12/18 17:13> Objective Active Medications: Ceftriaxone Sodium 2 gm/ (Sodium Chloride) 100 mls @ 200 mls/hr IVPB Q24H YESENIA Last Admin: 12/11/18 20:25 Dose: 200 mls/hr Vital Signs - 8 hr 12/12/18 12/12/18 11:07 15:46 Temperature 97.8 F 97.6 F Pulse Rate 74 71 Respiratory 18 20 Rate Blood Pressure 127/68 129/72 (mmHg) O2 Sat by Pulse 99 Oximetry Result Diagrams: 12/08/18 18:46 12/08/18 18:46 Assess/Plan/Problems-Billing NAD OP clear, mmm rrr, no murmurs CTA b/l no goit, thyroid nodules or thyroid tenderness ext warm well perfused AOX3 Assessment: 33 yo M pw EKG changes found with intermittent cardiac conduction abnormalities 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 Espinoza (2019; 73.8,556) -remain hospitalized until conduction abnormalities resolve or consider PPM ( timing for this unclear) Hyperthyroid -suspect thyroiditis in addition to carditis -TPO and TRab pending -asymptomatic -monitor - Patient Problems (1) Lyme carditis Code(s): A69.29 - OTHER CONDITIONS ASSOCIATED WITH LYME DISEASE; I51.89 - OTHER ILL-DEFINED HEART DISEASES Comment: Suspected based on presentation. Total lyme positive but confirmatory testing pending. EKG shows Mobitz type type II heart block, intermittent LBBB, 2 sec pause. Continue with ceftriaxone 2 gm. Monitor on telemetry. (2) Hyperthyroidism Comment: Possible thyroiditis as well as carditis in setting of possible lyme Check TPO and thyrotropin receptot antibody repeat TSH, free T3 and T4 in AM (3) DVT prophylaxis Comment: ambulating. Attestation Documenting Resident: Deng Supervising Physician: Dereck Attestation: This service has been performed in part by a resident under the direction of a teaching physician.Dereck Santamaria, performed the service, or was physically present during the critical, or saleem portions of the service, furnished by the resident. I participated in the management of the patient.
[2018-12-12] MEDS: cefTRIAXone(*) 2 GM in NS 0.9% 100 ML* 100 ML IVPB SCH (20:52)
--- NOTE | 2018-12-13 13:18 | CONS ---
CONSULTATION REPORT: DATE OF CONSULT: 12/13/18 PRIMARY CARE PROVIDER: Louann Garcias NP PROVIDER REQUESTING CONSULTATION: Dr. Edel Ha. CONSULTING SERVICES: Infectious Disease. PROVIDER: Rodo Covington NP ATTENDING PROVIDER: Dr. Dong Donis.* (DICTATED BY RODO COVINGTON NP) REASON FOR CONSULTATION: Lyme carditis. IMPRESSION: 1. Lyme carditis. The patient has positive Lyme serology with 3 IgM and 8 IgG antibodies. Negative for other Lyme co-infection, continues to have first- degree heart block with a prolonged MT interval. He has had an echo showing trace mitral valve regurgitation, no vegetation. He was noted to have Mobitz type I and type II block yesterday morning with an intermittent left bundle branch block. 2. Hyperthyroidism. Patient report no previous issues with his thyroid that he is aware of. Unclear if there is a correlation with current lyme endocarditis. RECOMMENDATIONS: Recommend continuing ceftriaxone 2 g IV daily until his MT interval is less than 300, at which point he could be discharged home on doxycycline 100 mg twice daily to complete a 14-day course of antibiotics, day 5 14. HISTORY OF PRESENT ILLNESS: Mr. Beavers is a 33-year-old male with no significant past medical history who states approximately 1 month ago he had fatigue and flu- like symptoms that then progressed into muscle aches with migrating arthritis. Additionally, he was having fatigue, night sweats. He reports presenting for 2 emergency room visits at another hospital. Denies any tick bites, but does report approximately 2 weeks ago, having erythematous area around his right lower leg. Due to his persistent symptoms that progressed into an episode of severe lightheadedness, he presented to the [place] to be seen and was found to have an abnormal EKG and was sent to the emergency room for further evaluation. While in the emergency room, he was noted to have an EKG showing an accelerated junctional rhythm with a left bundle branch block and a second one showing a first- degree AV block with a prolonged MT of 384 and he was admitted for a Lyme carditis for monitoring as his MT was greater than 300. He was started on ceftriaxone 2 g. While in the hospital he has been seen in consultation by Helen Briceno NP with Cardiology. It was felt that the patient will benefit from a 30-day ambulatory air sampling and monitoring at discharge. His last EKG on 12/11/18 showed a MT interval of 413. He has been continued to be monitored on telemetry. He is noted to have a first-degree block. The MT interval around 380 this morning. He states that the discomfort that was most recently across his shoulders has resolved since being in the hospital. He denies further, fevers, chills. His fatigue is improving. Denies, nausea, vomiting, diarrhea. No current rash. No recent travel. PAST MEDICAL HISTORY: None. PAST SURGICAL HISTORY: Status post root canal. HOME MEDICATIONS: None. ALLERGIES: No known drug allergies. FAMILY HISTORY: Denies family history of recurrent resistant infection. Paternal grandfather with a history of NM. Father with diet controlled diabetes. Mother with a history of possible uterine cancer. SOCIAL HISTORY: Occasionally drinks alcohol. Occasionally smokes marijuana. Occasionally smokes cigars. REVIEW OF SYSTEMS: I performed a 10-point review of systems. All the pertinent positives and negatives are mentioned in the history of present illness. Remaining review of systems are negative. PHYSICAL EXAM: Vital Signs: Temperature 97.9, heart rate 62, respiratory rate 20, O2 sat 98% on room air, blood pressure 117/66. General Appearance: Alert, pleasant, and appears to be in no acute distress, sitting up in bed. Head normocephalic, atraumatic. EENT: Pupils equal and reactive to light, extraocular movements are intact. Moist mucous membranes. Neurological: Alert and oriented x4. Cranial nerves: II through XII are grossly intact. Cardiovascular: Regular rate and rhythm. S1, S2 present. No murmurs, rubs, or gallops heard. Respiratory: No accessory muscle use. Lungs are clear to auscultation bilateral. Abdomen: Soft, nontender, nondistended. Extremities: No lower extremity edema. DP/PT pulses are 2+ and symmetric. Musculoskeletal: No clubbing or cyanosis noted exhibits good strength in all extremities. Psychological: Calm and cooperative. Skin: No rashes or abnormalities seen. DIAGNOSTIC STUDIES/LAB DATA: Labs from 12/08/18; sodium 136, potassium 3.9, chloride 104, CO2 24, BUN 13, creatinine 0.73, glucose 104. White blood cell count 8.2, hemoglobin 12.3, hematocrit 37, platelet count 407. ESR 44. CRP 487.61. Please see impression recommendations outlined above. The recommendations have been discussed with Dr. Edel Ha. Thank you for asking us to see Mr. Beavers in consultation. The case has been reviewed with my attending, Dr. Dong Donis, who agrees with the plan of care. Reviewed by RODO COVINGTON, DRAPERY SEWER HAND-C 12/15/18 1852 [id number]/[facility] #: [id number] MTDD
--- NOTE | 2018-12-13 16:53 | PN ---
<Serge Jason - Last Filed: 12/13/18 16:46> Subjective Date of Service: 12/13/18 Interval History: Patient doesnot have any fresh complaint. No any SOB, chest pain, palpititations and fever. Objective Active Medications: Ceftriaxone Sodium 2 gm/ (Sodium Chloride) 100 mls @ 200 mls/hr IVPB Q24H YESENIA Last Admin: 12/12/18 20:52 Dose: 200 mls/hr Vital Signs - 8 hr 12/13/18 12/13/18 11:41 15:24 Temperature 97.6 F 97.7 F Pulse Rate 69 71 Respiratory 18 16 Rate Blood Pressure 122/72 153/80 (mmHg) O2 Sat by Pulse 98 98 Oximetry Oxygen Devices in Use Now: None Exam: Patient is sitting on a bed. General: No any rash, swelling or wound around the body. Neck: No swelling or lump. No tenderness. CVS: Normal heart sounds, No murmur, rubs or gallops. Respiratory: Normal vesicular sound heard. Neurological: Alert, conscious and oriented GI: Soft, with no tenderness. Bowel sound heard normally over all quadrants. Result Diagrams: 12/08/18 18:46 12/08/18 18:46 Additional Lab and Data: Lab Results 12/08/18 12/08/18 12/08/18 Range/Units 18:46 18:46 18:46 WBC 8.2 (3.5-10.8) 10^3/uL RBC 4.44 (4.18-5.48) 10^6 /uL Hgb 12.3 L (14.0-18.0) g/dL Hct 37 L (42-52) % MCV 84 (80-94) fL MCH 28 (27-31) pg MCHC 33 (31-36) g/dL RDW 13 (10-15) % Plt Count 407 (150-450) 10^3/uL MPV 6.5 L (7.4-10.4) fL Neut % (Auto) 68.5 % Lymph % (Auto) 20.2 % [place] % (Auto) 9.8 % Eos % (Auto) 0.7 % Baso % (Auto) 0.8 % Absolute Neuts (auto) 5.6 (1.5-7.7) 10^3/ul Absolute Lymphs (auto) 1.7 (1.0-4.8) 10^3/ul Absolute Monos (auto) 0.8 (0-0.8) 10^3/ul Absolute Eos (auto) 0.1 (0-0.6) 10^3/ul Absolute Basos (auto) 0.1 (0-0.2) 10^3/ul Absolute Nucleated RBC 0.0 10^3/ul Nucleated RBC % 0.0 Sodium 136 (135-145) mmol/L Potassium 3.9 (3.5-5.0) mmol/L Chloride 104 (101-111) mmol/L Carbon Dioxide 24 (22-32) mmol/L Anion Gap 8 (2-11) mmol/L BUN 13 (6-24) mg/dL Creatinine 0.73 (0.67-1.17) mg/dL Est GFR ( Amer) 148.8 (>60) Est GFR (Non-Af Amer) 123.0 (>60) BUN/Creatinine Ratio 17.8 (8-20) Glucose 104 H (70-100) mg/dL Lactic Acid 1.0 (0.5-2.0) mmol/L Calcium 8.8 (8.6-10.3) mg/dL Total Bilirubin 0.30 (0.2-1.0) mg/dL AST 14 (13-39) U/L ALT 15 (7-52) U/L Alkaline Phosphatase 83 (34-104) U/L Troponin I 0.01 (<0.04) ng/mL C-Reactive Protein Pending Total Protein 6.7 (6.4-8.9) g/dL Albumin 3.5 (3.2-5.2) g/dL Globulin 3.2 (2-4) g/dL Albumin/Globulin Ratio 1.1 (1-3) EKG Data: Two EKGs noted. First one at 16:04 today showed accelerated junctional at a rate of 83 with LBBB. Second one at 18:45 shows first degree AV block at a rate of 77bpm, with prolong OK of 384 and LBBB. Assess/Plan/Problems-Billing 33 yo previously healthy man presents with cardiac conduction abnormalities in setting of Lyme carditis with AV Block. Patient is on Ceftriaxone 2g IV. He also has abnormal thyroid function. - Patient Problems (1) Lyme carditis Current Visit: Yes Status: Acute Code(s): A69.29 - OTHER CONDITIONS ASSOCIATED WITH LYME DISEASE; I51.89 - OTHER ILL-DEFINED HEART DISEASES SNOMED Code(s): 39604504 Comment: Confirmed by Western Blot. EKG shows Mobitz type type II heart block, intermittent LBBB, 2 sec pause. Continue with ceftriaxone 2 gm. Monitor on telemetry. (2) Hyperthyroidism Current Visit: Yes Status: Acute Code(s): E05.90 - THYROTOXICOSIS, UNSP WITHOUT THYROTOXIC CRISIS OR STORM SNOMED Code(s): 72389686 Comment: May be because of thyroiditis in the setting of lyme disease. May foolow up TFT again in 4-6 weeks. (3) DVT prophylaxis Current Visit: Yes Status: Acute Code(s): Z29.9 - ENCOUNTER FOR PROPHYLACTIC MEASURES, UNSPECIFIED SNOMED Code(s): 979286040 Comment: ambulating. Status and Disposition: Medicine Inpatient for continued monitoring on telemetry . Attending: Edel Ha <Edel Ha - Last Filed: 12/14/18 21:16> Objective Active Medications: Ceftriaxone Sodium 2 gm/ (Sodium Chloride) 100 mls @ 200 mls/hr IVPB Q24H YESENIA Last Admin: 12/14/18 20:18 Dose: 200 mls/hr Vital Signs - 8 hr 12/14/18 12/14/18 15:24 20:41 Temperature 98 F Pulse Rate 67 Respiratory 16 16 Rate Blood Pressure 132/74 (mmHg) O2 Sat by Pulse 98 Oximetry Result Diagrams: 12/08/18 18:46 12/08/18 18:46 Assess/Plan/Problems-Billing No overnight events. No symptoms on ROS. well appearing young man, alert and interactive no JVD, no thyromegaly rrr no mgr ctab abd soft, nontender no LE edema 33 healthy man presents with abnormal EKG from clinic, found with variable AV bravo block, and labs confirming Lyme carditis. # Lyme carditis with 1st degree block. - cont CTX until OK < 300, then discharge on PO doxy for 14 day course - will clarify with cardiology if outpatient monitor is still indicated # Thyroiditis, could be from Lyme vs nonthyroidal illness syndrome. TPO and TRAb negative. No symptoms. - f/u TSH, fT4, fT3 in 6 weeks Attestation Documenting Resident: Eren Supervising Physician: Dilcia Attestation: This service has been performed in part by a resident under the direction of a teaching physician.I, Dilcia, performed the service, or was physically present during the critical, or saleem portions of the service, furnished by the resident. I participated in the management of the patient.
[2018-12-13] MEDS: cefTRIAXone(*) 2 GM in NS 0.9% 100 ML* 100 ML IVPB SCH (21:02)
--- NOTE | 2018-12-14 13:57 | PN ---
Progress Note - Progress Note Date of Service: 12/14/18 SOAP: Subjective: CC: lyme carditis HPI: 33 year old man with a few weeks malaise, aches and more recent severe fatigue and dyspnea, heartblock on ECG. Now 1st degree block, IA approx 300. No fever, rash, or diarrhea. Objective: Vital Signs Temp 36.4 C 12/14/18 12:04 Pulse 63 12/14/18 12:04 Resp 20 12/14/18 12:04 BP 122/70 12/14/18 12:04 Pulse Ox 97 12/14/18 12:04 Intake & Output 12/13/18 12/14/18 12/14/18 18:59 06:59 18:59 Intake Total 840 100 720 Output Total 0 Balance 840 100 720 Intake: IVPB 100 ABX - CEFTRIAXONE 100 Oral 840 0 720 Output: Urine 0 Gen:awake, no distress HEENT: no thrush Heart:RRR no murmur Lungs:CTA BL Abd:+BS NTND soft Skin: no rash Laboratory Results - last 24 hr 12/11/18 14:40 TSH Receptor Ab <1.00 Assessment: 1. Lyme carditis now 1st degree block 2. Suppressed TSH ?coincident or associated thyroiditis Plan: 1. doxycycline 100 mg po twice daily to complete 14 days of treatment, offered follow up, he is service [facility] 35 minutes floor time >50% face to face in counseling regarding Lyme treatment and tick bite avoidance
--- NOTE | 2018-12-14 16:32 | PN ---
<Serge Jason - Last Filed: 12/14/18 16:23> Subjective Date of Service: 12/14/18 Interval History: Patient doesnot have any complain. No any light headedness, palpitations or dizziness. Objective Active Medications: Ceftriaxone Sodium 2 gm/ (Sodium Chloride) 100 mls @ 200 mls/hr IVPB Q24H YESENIA Last Admin: 12/13/18 21:02 Dose: 200 mls/hr Vital Signs - 8 hr 12/14/18 12/14/18 12:04 15:24 Temperature 97.6 F 98 F Pulse Rate 63 67 Respiratory 20 16 Rate Blood Pressure 122/70 132/74 (mmHg) O2 Sat by Pulse 97 98 Oximetry Oxygen Devices in Use Now: None Exam: Patient is sitting on a bed and having is luch. HEENT: Normocephalic, Eyes PERRLA, Neck: No any mass, No any tenderness. CVS: Normal heart sound heard. No any murmur, gallop or rubs. Respi: Normal vesicular sound heard GI: Normal bowel sound heard. Neuro: Alert, conscious and oriented. Result Diagrams: 12/08/18 18:46 12/08/18 18:46 Additional Lab and Data: Lab Results 12/08/18 12/08/18 12/08/18 Range/Units 18:46 18:46 18:46 WBC 8.2 (3.5-10.8) 10^3/uL RBC 4.44 (4.18-5.48) 10^6 /uL Hgb 12.3 L (14.0-18.0) g/dL Hct 37 L (42-52) % MCV 84 (80-94) fL MCH 28 (27-31) pg MCHC 33 (31-36) g/dL RDW 13 (10-15) % Plt Count 407 (150-450) 10^3/uL MPV 6.5 L (7.4-10.4) fL Neut % (Auto) 68.5 % Lymph % (Auto) 20.2 % [place] % (Auto) 9.8 % Eos % (Auto) 0.7 % Baso % (Auto) 0.8 % Absolute Neuts (auto) 5.6 (1.5-7.7) 10^3/ul Absolute Lymphs (auto) 1.7 (1.0-4.8) 10^3/ul Absolute Monos (auto) 0.8 (0-0.8) 10^3/ul Absolute Eos (auto) 0.1 (0-0.6) 10^3/ul Absolute Basos (auto) 0.1 (0-0.2) 10^3/ul Absolute Nucleated RBC 0.0 10^3/ul Nucleated RBC % 0.0 Sodium 136 (135-145) mmol/L Potassium 3.9 (3.5-5.0) mmol/L Chloride 104 (101-111) mmol/L Carbon Dioxide 24 (22-32) mmol/L Anion Gap 8 (2-11) mmol/L BUN 13 (6-24) mg/dL Creatinine 0.73 (0.67-1.17) mg/dL Est GFR ( Amer) 148.8 (>60) Est GFR (Non-Af Amer) 123.0 (>60) BUN/Creatinine Ratio 17.8 (8-20) Glucose 104 H (70-100) mg/dL Lactic Acid 1.0 (0.5-2.0) mmol/L Calcium 8.8 (8.6-10.3) mg/dL Total Bilirubin 0.30 (0.2-1.0) mg/dL AST 14 (13-39) U/L ALT 15 (7-52) U/L Alkaline Phosphatase 83 (34-104) U/L Troponin I 0.01 (<0.04) ng/mL C-Reactive Protein Pending Total Protein 6.7 (6.4-8.9) g/dL Albumin 3.5 (3.2-5.2) g/dL Globulin 3.2 (2-4) g/dL Albumin/Globulin Ratio 1.1 (1-3) EKG Data: Two EKGs noted. First one at 16:04 today showed accelerated junctional at a rate of 83 with LBBB. Second one at 18:45 shows first degree AV block at a rate of 77bpm, with prolong TN of 384 and LBBB. Assess/Plan/Problems-Billing 33 yo previously healthy man presents with cardiac conduction abnormalities in setting of Lyme carditis with AV Block. Patient is on Ceftriaxone 2g IV. He also has abnormal thyroid function. Once his TN<300 we can discharge him on oral antibiotics. - Patient Problems (1) Lyme carditis Current Visit: Yes Status: Acute Code(s): A69.29 - OTHER CONDITIONS ASSOCIATED WITH LYME DISEASE; I51.89 - OTHER ILL-DEFINED HEART DISEASES SNOMED Code(s): 66284336 Comment: Confirmed by Western Blot. EKG shows Mobitz type type II heart block, intermittent LBBB, 2 sec pause. Continue with ceftriaxone 2 gm. Monitor on telemetry. His TN interval was 316 this afternoon. (2) Hyperthyroidism Current Visit: Yes Status: Acute Code(s): E05.90 - THYROTOXICOSIS, UNSP WITHOUT THYROTOXIC CRISIS OR STORM SNOMED Code(s): 43356846 Comment: May be because of thyroiditis in the setting of lyme disease. May foolow up TFT again in 4-6 weeks. (3) DVT prophylaxis Current Visit: Yes Status: Acute Code(s): Z29.9 - ENCOUNTER FOR PROPHYLACTIC MEASURES, UNSPECIFIED SNOMED Code(s): 503781544 Comment: ambulating. Status and Disposition: Medicine Inpatient for continued monitoring on telemetry . Attending: Edel Ha <Edel Ha - Last Filed: 12/14/18 21:14> Objective Active Medications: Ceftriaxone Sodium 2 gm/ (Sodium Chloride) 100 mls @ 200 mls/hr IVPB Q24H YESENIA Last Admin: 12/14/18 20:18 Dose: 200 mls/hr Vital Signs - 8 hr 12/14/18 12/14/18 15:24 20:41 Temperature 98 F Pulse Rate 67 Respiratory 16 16 Rate Blood Pressure 132/74 (mmHg) O2 Sat by Pulse 98 Oximetry Result Diagrams: 12/08/18 18:46 12/08/18 18:46 Assess/Plan/Problems-Billing No overnight events. No symptoms on ROS. well appearing young man, alert and interactive no JVD, no thyromegaly rrr no mgr ctab abd soft, nontender no LE edema EKG with TN 301 33 healthy man presents with abnormal EKG from clinic, found with variable AV bravo block, and labs confirming Lyme carditis. # Lyme carditis with 1st degree block. - cont CTX until TN < 300, then discharge on PO doxy for 14 day course # Thyroiditis, could be from Lyme vs nonthyroidal illness syndrome. TPO and TRAb negative. No symptoms. - f/u TSH, fT4, fT3 in 6 weeks Attestation Documenting Resident: Eren Supervising Physician: Dilcia Attestation: This service has been performed in part by a resident under the direction of a teaching physician.IDilcia, performed the service, or was physically present during the critical, or saleem portions of the service, furnished by the resident. I participated in the management of the patient.
[2018-12-14] MEDS: cefTRIAXone(*) 2 GM in NS 0.9% 100 ML* 100 ML IVPB SCH (20:18)
[2018-12-15 14:56] VITALS: BP 115/66
--- NOTE | 2018-12-15 18:06 | DS ---
Resident Discharge Summary Discharge Summary: Date of Admission: 12/08/18 Date of Discharge: 12/15/18 Admitting MD: José Beyer MD Attending MD: Edel Ha MD Primary Care Physician: Louann Garcias Home Medications Medication Instructions Recorded Confirmed Type DOXYcycline CAP(*) [DOXYcycline 100 mg PO BID #15 cap 12/15/18 Rx 100MG CAP(*)] Disposition: Home Condition: Good Primary Diagnosis: 1. Lyme Carditis. Secondary Diagnosis: 1. Hyperthyroidism Hospital Course: 33 y/o M otherwise healthy presented due to muscle aches, migratory joint pain and generalized fatigue for 1 month. He also had sweating, night sweats and light headedness. He also reports fever. Gives history of bug bite 1 month ago. He never had chest pain and passing out. He went to [place] and was found to have abnormal EKG and referred here. His EKG showed acclerated junctional rhythm, Prolonged VA intrval and LBBB. He was started on Ceftriaxone 2 gm IV and admitted. Cardiology and Infectious disease was consulted and was planned to continue iv Antibiotic untill VA interval<300 ms. His TFT showed hyperthyroidisn but patient didnot have any symptom so no treatment started; plan to f/u tft after 4 weeks. At the time of discharge his VA interval was 289ms. Follow Up Instructions: F/U with PCP in 1-2 weeks. Follow up with river driver in 1-2 weeks. F/U to do TFT in 4 weeks. In case of an emergency or after clinic hours, please go to your nearest Emergency Department. You may also call the [facility] asphalt roller operator at ( [phone].
== END 2018-12-15 13:00 | disposition home or self-care (01) | DRG 869 ==
LOC: ED 15:49 → MEDTELE 20:47
PROVIDERS: ADMIT Internal Medicine; ATTEND Internal Medicine
DX: A69.29 Other conditions associated with Lyme disease (principal); I44.1 Atrioventricular block, second degree; I51.89 Other ill-defined heart diseases; E05.90 Thyrotoxicosis, unspecified without thyrotoxic crisis or storm; E06.9 Thyroiditis, unspecified; I44.7 Left bundle-branch block, unspecified; Z83.3 Family history of diabetes mellitus; Z82.49 Family history of ischemic heart disease and other diseases of the circulatory system; Z80.49 Family history of malignant neoplasm of other genital organs; Z72.0 Tobacco use
CPT/HCPCS: 36415; 80053; 82550; 82553; 83520; 83605; 84439; 84443; 84481; 84484; 85025; 85652; 86038; 86140; 86376; 86431; 86617; 86618; 87798; 93005; 93306; 99284; J0696